=== PATIENT | male | born 1990 | race Two or more races ===

== ENCOUNTER 2023-11-20 20:02 | Emergency (ER) | payer OTHER ==
[~2023-11-20] VITALS: Ht 170.2 cm; Wt 81.8 kg
[2023-11-20 20:05] VITALS: TEMP 97.9
[2023-11-20] MEDS ORDERED: HYDR-4062 PO (21:13)
[2023-11-20] MEDS ORDERED: CEPH-558 PO (21:13)
[2023-11-20] MEDS: CEPHALEXIN MONOHYDRATE 500 MG CAPSULE PO ONE (21:19)
[2023-11-20] MEDS: PERTUSS(ACELL),DIPH,TET/PF 0.5 ML SYRINGE [ADULT] IM. ONE (21:19)
[2023-11-20] MEDS: HYDROCODONE/ACETAMINOPHEN 5-325 MG TABLET PO ONE (21:19)
[2023-11-20] MEDS: SILVER SULFADIAZINE 1% 25 GM CREAM TP ONE (21:34)
[2023-11-20 21:45] VITALS: BP 133/60; PULSE 61; RESP 16
== END 2023-11-20 22:08 | disposition home or self-care (01) ==
LOC: EMS 20:02
DX: T25.221A Burn of second degree of right foot, initial encounter (principal); T25.222A Burn of second degree of left foot, initial encounter; X12.XXXA Contact with other hot fluids, initial encounter; Y93.89 Activity, other specified; Y92.89 Other specified places as the place of occurrence of the external cause; Y99.0 Civilian activity done for income or pay
CPT/HCPCS: 16020; 90471; 90715; 99284

== ENCOUNTER 2024-08-31 14:56 | Emergency (ER) | payer BC, OTHER ==
[~2024-08-31] VITALS: Ht 170.2 cm; Wt 80.9 kg
[~2024-08-31 14:56] MED LIST: CEPH-558 PO; HYDR-4062 PO
[2024-08-31 15:05] VITALS: TEMP 98.1
[2024-08-31 17:54] VITALS: BP 121/75; PULSE 69; RESP 18; O2SAT 98
== END 2024-08-31 17:55 | disposition home or self-care (01) ==
LOC: EMS 14:56
DX: S50.01XA Contusion of right elbow, initial encounter (principal); W22.8XXA Striking against or struck by other objects, initial encounter; Y93.89 Activity, other specified; Y92.89 Other specified places as the place of occurrence of the external cause; Y99.0 Civilian activity done for income or pay
CPT/HCPCS: 99283